=== PATIENT | female | born 1990 | race Caucasian/White ===

== ENCOUNTER 2020-03-01 13:30 | Inpatient (IN) ==
[2020-03-01] MEDS ORDERED: OXYTOCIN 30 UNITS/500 ML BAG IV PRN (13:49)
--- NOTE | 2020-03-01 13:55 | History & Physical Report ---
Date of Service March 01, 2020 Assessment & Plan (1) with 41 completed weeks gestation: (2) Normal labor: admit. fetus category one. Desires epidural. expectant management. Anticipate . History of Present Illness Chief Complaint: contractions. Primary Care Provider: Eboni Salazar MD Patient is a 29yowf with iup at 41 2/7 weeks who presents to labor and delivery c/o contractions. Patient was on for induction today and had a reyes bulb last night which fell out prior to leaving. She notes today onset of increasingly painful contractions. Notes bloody mucous d/c. no lof. +fm. labs--O+/ab-/ri/rprnr/hepb-/hiv-/gc/ct-/16 week gtt abnl/2 hr gtt x 2 nl/gbs neg. Allergies Allergy/AdvReac Type Severity Reaction Status Date / Time doxycycline Allergy Vomiting Verified 02/29/20 19:23 Home Medications Home Medications Medication Instructions Recorded Confirmed Type prenat.vits,meg,tax-bmej-ucahd 1 tab PO DAILY 07/07/19 02/29/20 History lactobacillus combination no.4 3 3,000 mmu cells PO DAILY 09/07/19 02/29/20 History billion cell capsule Patient History Social History Preferred Language: [place] Beliefs That Will Affect Care: None marital status: Current Living Situation: Spouse Current Living Situation Comment: no pets current occupational status: employed current occupation: patient support Feels Safe at Home: Yes Smoking Status: Never smoker Hx Alcohol Use: No Hx Substance Use: No OB History g1--present EMERGENCY DEPARTMENT RN History hx of +HPV in the past Review of Systems All systems reviewed & are unremarkable except as noted in HPI & below Physical Exam Constitutional: WD/WN, vitals as above Gastrointestinal (Abdomen): soft, gravid, nt Psychiatric: A+Ox3, euthymic affect Genitourinary: cx--8/100/-1 toco--q2-3min efm--120s with mod variability, accels to 150s, no decels Results & Data Vital Signs (Past 12 Hours) Vital Signs Pulse BP 03/01/20 13:41 56 L 128/81 Code Status & VTE Plan VTE Prophylaxis Plan VTE Prophylaxis will be ordered: No Coding Level of Care Code None Diagnoses with 41 completed weeks gestation Z3A.41 Normal labor O80; Z37.9
[2020-03-01] MEDS: LACTATED RINGER'S 1,000 ML IV PRN ×2 (13:57→14:52)
[2020-03-01 14:20] LABS: Hematocrit (blood only) 40.8 % (37-47); Hemoglobin 14.2 g/dL (12.0-16.0); Mean Corpuscular Hemoglobin 31.6 pg (25-34); Mean Corpuscular Volume 90.9 fL (80-100); Mean Platelet Volume 11.1 fL (7.4-10.4); Platelet Count 249 K/uL (130-400); RDW Coefficient of Variation 13.2 % (11.5-14.5); RDW Standard Deviation 43.7 fL (36.4-46.3); Red Blood Count 4.49 M/uL (4.2-5.4); White Blood Count 13.09 K/uL (4.8-10.8)
[2020-03-01 14:28] LABS: Mean Corpuscular Hgb Conc 34.8 g/dL (32-36)
--- NOTE | 2020-03-01 14:31 | Anesthesiology Consultation ---
Date of Service March 01, 2020 Assessment & Plan Chart Review Chart Review: Acceptable Risk for Surgery, Patient NOT seen in Pre Admission Testing and Acceptable Risk for Labor Epidural Consults Requested none ASA ASA2 Proposed Anesthesia Anesthesia Type: General, Labor Epidural and CSE Risk / Benefits Reviewed With: PT / POA / Parent / Guardian, Accepts Plan and Informed Consent Obtained History Height/Weight Height: 5 ft 4 in Weight: 75.296 kg Allergies Allergy/AdvReac Type Severity Reaction Status Date / Time doxycycline Allergy Vomiting Verified 02/29/20 19:23 Medications Home Medications Medication Instructions Recorded Confirmed Last Taken prenat.vits,meg,fci-rawi-ahotw 1 tab PO DAILY 07/07/19 03/01/20 02/29/20 Active Medications Generic Name Dose Route Start Last Admin Trade Name Freq PRN Reason Stop Dose Admin Lactated Ringer's 1,000 mls @ 125 mls/hr 03/01/20 13:49 03/01/20 13:57 Lr IV 03/03/20 13:48 999 mls/hr .Q8H PRN Administration L&D Protocol Protocol NPO Date Last Intake of Fluids: 03/01/20 Time Last Intake of Fluids: 11:00 Date Last Intake of Solids: 03/01/20 Time Last Intake of Solids: 09:00 Past Medical History Medical History Abnormal biochemical finding on screening of mother Anemia Anxiety History of chicken pox Lyme disease (Resolved) UTI (urinary tract infection) Exercise / Class Metabolic Activity II 4-5 Yardwork/Stairs/Walk up hill Past Family History Family History Grandfather (Maternal) Diabetes Grandfather (Paternal) No problems noted. Grandmother (Paternal) Heart disease Father Hypertension Mother Thyroid disease Aunt Breast cancer Past Surgical History Surgical History S/P wisdom tooth extraction Past Anesthesia History No Hx of Anesthesia Complications and No Family Hx of Anesthesia Complications History of PONV No Hx of PONV and No Hx of Motion Sickness Social History Smoking Status: Never smoker Hx Alcohol Use: No Hx Substance Use: No substance use type: does not use Physical Exam Vital Signs Last Vital Signs Temp 36.5 C 04/03/20 13:59 Pulse 58 L 03/01/20 14:27 Resp 20 03/01/20 13:59 BP 128/81 03/01/20 13:41 Pulse Ox 100 03/01/20 14:27 Constitutional not obese ENMT Mouth: + small oral opening; no dentition abnormality Thyromental Distance: < 3.5 Finger Breadths Mallampati Class: II Neck normal visual inspection and trachea midline; neck extension not limited Respiratory normal respiratory effort Auscultation: lungs clear to auscultation bilaterally Cardiovascular Rate/Rhythm: regular rate and regular rhythm Heart Sounds: no murmur Vessels: no carotid bruit Musculoskeletal Spine: lumbar spine normal to inspection; normal cervical ROM Neurologic moves all extremities Motor/Sensory: no sensory deficit Psychiatric Orientation: alert and oriented x 3 Testing Laboratory Results 03/01/20 14:00
[2020-03-01] MEDS ORDERED: ePHEDrine sulfate 50 MG/ML AMP ONE (14:36)
[2020-03-01] MEDS ORDERED: fentaNYL 2MCG/ML ROPIV 1.25MG/ML 100 ML BAG EPI ONE (14:37)
[2020-03-01] MEDS ORDERED: BUPIVACAINE 0.25% 30 ML VIAL ONE (14:37)
[2020-03-01] MEDS ORDERED: fentaNYL citrate 100 MCG/2 ML VIAL ONE (14:37)
[2020-03-01] MEDS ORDERED: NALOXONE HCL 1 MG in SODIUM CHLORIDE 0.9% 1000ML 1,000 ML IV PRN ×2 (14:49→15:55)
[2020-03-01] MEDS ORDERED: ePHEDrine sulfate 50 MG/ML AMP IV PRN ×2 (14:49→15:55)
[2020-03-01] MEDS ORDERED: PROMETHAZINE HCL 25 MG in SODIUM CHLORIDE 0.9% 50 ML IV PRN ×2 (14:49→15:55)
[2020-03-01] MEDS ORDERED: ONDANSETRON INJ 2 MG/ML 2 ML VIAL IV PRN ×3 (14:49→18:44)
[2020-03-01] MEDS ORDERED: DiphenhydrAMINE HCL 50 MG/ML VIAL IV PRN ×2 (14:49→15:55)
[2020-03-01] MEDS ORDERED: NALBUPHINE HCL INJ 10 MG/ML AMP IV PRN ×2 (14:49→15:55)
[2020-03-01] MEDS ORDERED: fentaNYL 2MCG/ML ROPIV 1.25MG/ML 100 ML BAG EPI PRN (14:49)
[2020-03-01] MEDS ORDERED: NALOXONE HCL 0.4 MG/1 ML VIAL/CARP IV PRN ×2 (14:49→15:55)
[2020-03-01] MEDS ORDERED: TERBUTALINE SULFATE 1 MG/ML VIAL ONE (15:30)
[2020-03-01] MEDS ORDERED: MoRPHine SULFATE PF 1 MG/ML 10 ML AMP/VIAL ONE (15:47)
[2020-03-01] MEDS ORDERED: LACTATED RINGER'S 500 ML IV PRN (15:55)
[2020-03-01] MEDS ORDERED: MoRPHine SULFATE 2 MG/ML CARP IV PRN (15:55)
[2020-03-01] MEDS ORDERED: MoRPHine SULFATE PF 1 MG/ML 10 ML AMP/VIAL INT SPINAL ONE (15:55)
[2020-03-01] MEDS ORDERED: KETOROLAC 30 MG/ML VIAL IV PRN (15:55)
[2020-03-01] MEDS ORDERED: NALOXONE HCL 0.08 MG in SYRINGE 1.8 ML IV PRN (15:55)
[2020-03-01] MEDS ORDERED: HYDROmorphone INJ 0.5 MG/0.5 ML SYR IV PRN (15:55)
[2020-03-01] MEDS ORDERED: OXYTOCIN 10 UNITS/ML VIAL ONE (15:57)
[2020-03-01] MEDS ORDERED: PHENYLEPHRINE 100MCG/ML 5ML SYR ONE (15:57)
[2020-03-01] MEDS ORDERED: ONDANSETRON INJ 2 MG/ML 2 ML VIAL ONE (15:57)
[2020-03-01] MEDS ORDERED: CARBOPROST TROMETHAMINE 250 MCG/ML AMPUL ONE (15:57)
[2020-03-01] MEDS ORDERED: LIDOCAINE/EPINEPHRINE 2% 1:200,000 20 ML SDV ONE (15:57)
[2020-03-01] MEDS ORDERED: DC INTRASPINAL MORPHINE SCH (16:00)
[2020-03-01] MEDS ORDERED: NO NARCOTICS OR SEDATIVES SCH (16:00)
[2020-03-01] MEDS ORDERED: SODIUM CHLORIDE 0.9% 1000ML 1,000 ML IV SCH (16:00)
--- NOTE | 2020-03-01 16:32 | Anesthesia Procedure Note ---
Date of Service March 01, 2020 Anesthesia Post Epidural Note Vital Signs Vital Signs: Temp Pulse Resp BP Pulse Ox 36.5 C 109 H 24 140/79 88 L 03/01/20 13:59 03/01/20 16:31 03/01/20 15:00 03/01/20 16:25 03/01/20 16:31 Notes Mental Status: alert / awake / arousable Patient Amnestic to Procedure: No Nausea / Vomiting: adequately controlled Pain: adequately controlled Airway Patency, RR, SpO2: stable & adequate BP & HR: stable & adequate Hydration State: stable & adequate Neuraxial Anesthesia: was administered and sensory block is resolving Anesthetic Complications: no major complications apparent and Pt Satisfied with anesthetic care Epidural: Removed without complications and With tip intact
--- NOTE | 2020-03-01 16:32 | Anesthesiology Progress Note ---
Date of Service March 01, 2020 Anesthesia Post Procedure Vital Signs Vital Signs: Temp Pulse Resp BP Pulse Ox 03/01/20 16:31 109 H 88 L 03/01/20 16:26 110 H 100 03/01/20 16:25 114 H 140/79 03/01/20 16:21 121 H 83 L 03/01/20 16:17 121 H 115/76 03/01/20 16:16 121 H 98 03/01/20 15:18 55 L 130/70 03/01/20 15:16 56 L 123/73 03/01/20 15:14 55 L 112/58 L 91 03/01/20 15:12 55 L 104/56 L 03/01/20 15:11 56 L 92 03/01/20 15:10 57 L 109/65 03/01/20 15:09 97 H 82 L 03/01/20 15:08 53 L 105/57 L 03/01/20 15:06 60 107/57 L 85 L 03/01/20 15:04 74 115/56 L 03/01/20 15:03 58 L 100 03/01/20 15:02 52 L 106/58 L 03/01/20 15:00 54 L 24 106/56 L 03/01/20 14:58 53 L 108/59 L 100 03/01/20 14:55 53 L 93/52 L 03/01/20 14:53 56 L 100 03/01/20 14:52 55 L 100/54 L 03/01/20 14:50 51 L 102/54 L 03/01/20 14:49 49 L 106/53 L 03/01/20 14:48 49 L 100 03/01/20 14:47 53 L 123/55 L 03/01/20 14:44 51 L 132/72 03/01/20 14:43 49 L 144/70 H 100 03/01/20 14:38 64 98 03/01/20 14:33 65 100 03/01/20 14:30 20 03/01/20 14:27 58 L 100 03/01/20 14:22 47 L 100 03/01/20 14:17 53 L 100 03/01/20 13:59 36.5 C 20 03/01/20 13:41 56 L 128/81 Transfer of Care Handoff Completed per policy Notes Mental Status: alert / awake / arousable Patient Amnestic to Procedure: No Nausea / Vomiting: adequately controlled Pain: adequately controlled Airway Patency, RR, SpO2: stable & adequate BP & HR: stable & adequate Hydration State: stable & adequate Neuraxial Anesthesia: was administered and sensory block is resolving Anesthetic Complications: no major complications apparent and Pt Satisfied with anesthetic care
[2020-03-01] MEDS ORDERED: CARBOPROST TROMETHAMINE 250 MCG/ML AMPUL IM ONE (16:45)
--- NOTE | 2020-03-01 16:55 | Operative Report (OR) ---
DATE OF OPERATION: 03/01/2020 PREOPERATIVE DIAGNOSES: 1. Intrauterine at 41 and 2/7 weeks. 2. Active labor. 3. Non-reassuring heart testing. POSTOPERATIVE DIAGNOSES: Same. PROCEDURE: Emergent primary lower transverse section. SURGEON: Josselyn Avendaño M.D. DATA ENTRY PROCESSOR: Bella Soto RN. ANESTHESIA: Epidural. ESTIMATED BLOOD LOSS: 600 mL. FLUIDS: 1000 mL. URINE OUTPUT: Minimal amount of pink tinged urine draining from the bladder at the end of the procedure. INDICATIONS: Ilene is a 1, para 0 who presented to labor and delivery in active labor. She had a planned induction for today and had a Campa catheter placed last night, but that fell out prior to leaving and she went home. She called complaining of labor and was brought in and was found to be 8 cm dilated and in active labor. Fetus was category 1 at that time with accelerations. The patient underwent an epidural anesthetic and then unfortunately had a prolonged deceleration after her epidural was given. After her epidural, she was placed into a supine position with a leftward tilt and found to be having decelerations into the 60s. Resuscitation was begun including rolling the patient, giving oxygen, fluids and subQ terbutaline. She was certainly in what appeared to be a spontaneous tachysystole pattern. This started at about 14:51. With stimulation of the fetus and placement of an FSE, we did get the baby back to the 120s for a brief period of time, but then the baby started having more prolonged and persistent decelerations, persisting with contractions and so the decision was made to proceed with emergent delivery secondary to inability to resuscitate the baby. At the time she underwent rupture of membranes for clear fluid and there was still a rim of cervix and station was 0 to +1. I did not feel I could safely get a vacuum on this baby. FINDINGS: Viable male , Apgars 8 and 9, weight pending. Uterus, tubes, and ovaries were noted to be normal bilaterally. There was no occult cord that I could appreciate. COMPLICATIONS: None. DRAINS: Campa. DISPOSITION: To recovery room in stable condition. DESCRIPTION OF THE PROCEDURE: The patient was taken to the operating room urgently. She was transferred to the operating bed with a leftward tilt. A Campa catheter has already been placed. She was restrained safely on the bed and iodine splash was placed on the belly. The patient was prepped and draped. A time-out was noted identifying correct patient and procedure. A Pfannenstiel skin incision was made with a knife, taken down to the underlying layer of fascia with the knife. The fascia was incised in the midline with the knife. The steelscope operator's fingers were then placed in the fascial incision and the fascia was opened cephalad and caudad. The muscles were bluntly in the midline and the peritoneum was entered bluntly. The incision was stretched, the bladder blade was placed. The vesicouterine peritoneum was found to be low. Hysterotomy incision was made above the bladder with the knife. The steelscope operator's fingers were placed into this and it was opened cephalad and caudad. The steelscope operator's hand was placed into the uterus. The baby was wedged into the pelvis and low, so an account assistant pushed vaginally and pushed the baby back up into the uterus and I was able to then deliver the 's head atraumatically. There was no nuchal cord. The rest of the baby was then delivered without difficulty. The cord was clamped and cut. The was handed off to waiting band ripsaw operator for drying and attention. Cord blood and gases were obtained. Placenta was manually extracted. The uterus was cleared of all clot and debris with moistened laparotomy sponges. Hysterotomy incision was repaired in 2 layers, the first in a running locked layer, the second in an imbricating layer of 0 Vicryl. Hemostasis was obtained with dilute Pitocin and intramuscular application of Hemabate into the uterus. A shvxed-se-vukrc suture was needed in the midline for hemostasis. The posterior cul-de-sac was irrigated and cleared of all clot and debris. The hysterotomy incision was again inspected and found to be hemostatic. The uterus was reinteriorized. Hysterotomy incision was again inspected and found to be hemostatic. Gutters were cleared of all clot and debris. The muscles were reapproximated with interrupted stitches of 0 Vicryl meeting in the midline. The fascia was reapproximated with 0 Vicryl starting at the corners and meeting in the midline and the incision was then closed with 4-0 Vicryl in subcuticular fashion. Sponge and needle counts were correct. We were unable to do an instrument count prior to the procedure and thus an x-ray was performed. On my preliminary reading there were no instruments left within the operative field. The patient was then transferred to the recovery room in stable condition. I attest to the content of the Intraoperative Record and any orders documented therein. Any exceptions are noted below. ABRIL
--- NOTE | 2020-03-01 17:32 | XRay Report ---
KUB HISTORY: no surgical count COMPARISON: None. FINDINGS: An epidural catheter is noted at the L3 level. No additional radiopaque foreign bodies iden tified within the abdomen or pelvis. Small foci of gas within the deep pelvis likely due to postopera tive change. No renal calculi. No ureteral calculi. IMPRESSION: 1. An epidural catheter noted at the L3 level. No additional radiopaque foreign bodies identified. 2. Small amount of gas within the deep pelvis likely represents postoperative change. ACT 112: Negative or not required by law. Electronically signed by: Raman Hollis M.D. 03/01/2020 5:31 PM
[2020-03-01 17:53] LABS: Base Excess Cord Venous Blood -7.4 mEq/L (-7.7-1.9); Cord Venous Blood HCO3 18 mmol/L (18.4-26.8); Cord Venous Blood PCO2 38 mmHg (30.4-57.2); Cord Venous Blood PO2 15 mmHg (14.1-43.3); O2 Saturation Cord Venous Bld < 60.0 % (<68)
[2020-03-01 17:55] LABS: Base Excess Cord Arterial Bld -7.6 mEq/L (-9-1.8); CO2 Cord Arterial Blood 42 mmHg (39.1-73.5); HCO3 Cord Arterial Blood 19 mmol/L (19.7-28.5); Oxygen Sat Cord Arterial Blood < 70.0 % (<60); PO2 Cord Arterial Blood 12 mmHg (4.1-31.7); pH Cord Arterial Blood 7.27 (7.1-7.38)
[2020-03-01] MEDS ORDERED: BENZOCAINE 20% AER SPR 82.5 GM CAN EXT PRN (18:44)
[2020-03-01] MEDS ORDERED: DIPHTHERIA/TETANUS/PERTUSSIS 0.5 ML SYR/VIAL IM ONE (18:44)
[2020-03-01] MEDS ORDERED: HYDROCORTISONE ACETATE 25 MG SUPP PR PRN (18:44)
[2020-03-01] MEDS ORDERED: MAGNESIUM HYDROXIDE SUSP 30 ML UDC PO PRN (18:44)
[2020-03-01] MEDS ORDERED: SUPERCREAM 0.870% 15 GM JAR EXT PRN (18:44)
[2020-03-01] MEDS ORDERED: SENNA 8.6 MG TAB PO PRN (18:44)
[2020-03-01] MEDS ORDERED: LACTATED RINGER'S 1,000 ML IV SCH (19:20)
[2020-03-01] MEDS: SIMETHICONE 80 MG CHEW PO SCH ×2 (20:03→21:19)
[2020-03-01] MEDS ORDERED: TERBUTALINE SULFATE 1 MG/ML VIAL SQ ONE (20:06)
[2020-03-01] MEDS: OXYTOCIN 20 UNITS in LACTATED RINGER'S 1,000 ML IV SCH (20:32)
[2020-03-01] MEDS: DOCUSATE SODIUM 100 MG CAP PO SCH (21:19)
[2020-03-02] MEDS: OXYTOCIN 20 UNITS in LACTATED RINGER'S 1,000 ML IV SCH (05:00)
[2020-03-02 07:06] LABS: Basophils # (auto) 0.01 K/uL (0-0.2); Basophils % (auto) 0.1 %; Hemoglobin 10.6 g/dL (12.0-16.0); Immature Granulocytes # (auto) 0.02 K/uL (0.00-0.02); Immature Granulocytes % (auto) 0.2 %; Lymphocytes # (auto) 1.83 K/uL (1.2-3.4); Lymphocytes % (auto) 14.7 %; Mean Corpuscular Hemoglobin 30.2 pg (25-34); Mean Corpuscular Hgb Conc 33.1 g/dL (32-36); Mean Corpuscular Volume 91.2 fL (80-100); Mean Platelet Volume 10.6 fL (7.4-10.4); Monocytes # (auto) 1.05 K/uL (0.11-0.59); Monocytes % (auto) 8.4 %; Neutrophils # (auto) 9.52 K/uL (1.4-6.5); Neutrophils % (auto) 76.6 %; Platelet Count 188 K/uL (130-400); RDW Coefficient of Variation 13.4 % (11.5-14.5); RDW Standard Deviation 44.1 fL (36.4-46.3); Red Blood Count 3.51 M/uL (4.2-5.4); White Blood Count 12.43 K/uL (4.8-10.8)
[2020-03-02] MEDS ORDERED: DiphenhydrAMINE HCL 50 MG/ML VIAL IV PRN (09:55)
[2020-03-02] MEDS ORDERED: MEPERIDINE HCL 50 MG/ML CARP IV PRN (09:55)
[2020-03-02] MEDS ORDERED: OXYCODONE/ACETAMINOPHEN 5mg/325mg TAB PO PRN (09:55)
[2020-03-02] MEDS ORDERED: KETOROLAC 30 MG/ML VIAL IV PRN (09:55)
[2020-03-02] MEDS ORDERED: PROMETHAZINE HCL 25 MG in SODIUM CHLORIDE 0.9% 50 ML IV PRN (09:55)
[2020-03-02] MEDS: SIMETHICONE 80 MG CHEW PO SCH ×3 (10:01→20:31)
[2020-03-02] MEDS: FERROUS SULFATE 325 MG TAB PO SCH (10:01)
[2020-03-02] MEDS: DOCUSATE SODIUM 100 MG CAP PO SCH ×2 (10:01→20:31)
[2020-03-02] MEDS: PRENATAL VITAMIN 1 TAB PO SCH (10:01)
[2020-03-02] MEDS: IBUPROFEN 600 MG TAB PO PRN ×3 (10:48→23:22)
--- NOTE | 2020-03-02 11:31 | Obstetrical Progress Note ---
Date of Service March 02, 2020 Assessment & Plan (1) S/P section: Doing well. Plan routine care. Reyes out--void, encourage ambulation, adat, po pain meds. Day #:: 1 Subjective Ambulation: limited ambulation Voiding: reyes catheter in place Passing Gas:: No Diet Tolerance:: clear liquids Lochia:: Small Feeding Type:: breast feeding Physical Exam Constitutional WD/WN, vitals as above Gastrointestinal (Abdomen) soft, appropriately tender, nd ff/appr tender at u Psychiatric A+Ox3, euthymic affect Results & Data Vital Signs (Past 12 Hours) Vital Signs Temp Pulse Resp BP Pulse Ox 03/02/20 06:15 18 97 03/02/20 05:35 18 97 03/02/20 04:30 18 94 03/02/20 03:30 18 96 03/02/20 03:10 36.9 C 69 18 118/66 96 03/02/20 02:20 16 96 03/02/20 01:05 18 96 03/02/20 00:00 36.7 C 62 18 115/66 97
[2020-03-02] MEDS ORDERED: ACETAMINOPHEN 325 MG TAB PO PRN (15:00)
[2020-03-02] MEDS ORDERED: bisacodyL 5 MG TABEC PO SCH (20:00)
[2020-03-03] MEDS: IBUPROFEN 600 MG TAB PO PRN ×3 (03:43→18:02)
[2020-03-03 06:03] LABS: Hematocrit (blood only) 30.2 % (37-47); Hemoglobin 10.1 g/dL (12.0-16.0)
[2020-03-03] MEDS: DOCUSATE SODIUM 100 MG CAP PO SCH ×2 (08:43→20:25)
[2020-03-03] MEDS: PRENATAL VITAMIN 1 TAB PO SCH (08:43)
[2020-03-03] MEDS: SIMETHICONE 80 MG CHEW PO SCH ×4 (08:43→20:25)
[2020-03-03] MEDS: FERROUS SULFATE 325 MG TAB PO SCH (08:43)
--- NOTE | 2020-03-03 11:09 | Obstetrical Progress Note ---
Date of Service March 03, 2020 Assessment & Plan (1) S/P section: doing well postop. stable. routine care. Day #:: 2 Subjective Ambulation: ambulating normally Voiding: no voiding problems Passing Gas:: Yes Diet Tolerance:: regular diet Lochia:: Small Feeding Type:: breast feeding no using narcotic pain meds and doing ok. working on breast feeding. denies ?s for me. Physical Exam Constitutional WD/WN, vitals as above Respiratory normal respiratory effort, lungs clear to auscultation Cardiovascular Rate/Rhythm: regular rate and regular rhythm Gastrointestinal (Abdomen) Inspection/Auscultation: + abdominal surgical incision (c/d/i with steris) Percussion/Palpation: abdomen soft; abdomen nontender (ff 2 down) Musculoskeletal nt calves. Neurologic grossly normal Psychiatric A+Ox3, euthymic affect Results & Data Vital Signs (Past 12 Hours) Vital Signs Temp Pulse Resp BP Pulse Ox 03/03/20 07:30 98.8 F 54 L 20 127/78 03/02/20 23:25 98.2 F 66 18 141/90 H 99
[2020-03-03] MEDS ORDERED: bisacodyL 10 MG SUPP PR PRN (16:34)
[2020-03-04] MEDS: IBUPROFEN 600 MG TAB PO PRN ×3 (00:01→11:43)
--- NOTE | 2020-03-04 07:06 | Obstetrical Progress Note ---
Date of Service March 04, 2020 Assessment & Plan (1) S/P section: stable, will d/c home. aware should wear scds while here in hospital and risks for dvt/pe. instructions are reviewed. f/u 6 wk pp check. bps ok. Subjective Ambulation: ambulating normally Voiding: no voiding problems Passing Gas:: Yes Diet Tolerance:: regular diet Lochia:: Small Feeding Type:: breast feeding doing well today, feeding well. feels like milk is coming in. Physical Exam Constitutional WD/WN, vitals as above Respiratory normal respiratory effort, lungs clear to auscultation Cardiovascular Rate/Rhythm: regular rate and regular rhythm Gastrointestinal (Abdomen) Inspection/Auscultation: normal bowel sounds and + abdominal surgical incision (c/d/i with steris, may have bruising on mons) Percussion/Palpation: abdomen soft; abdomen nontender (fundus one above but pt hasn't voided yet, feeding baby) Musculoskeletal nt calves no edema, not wearing her scds, said she opted to not wear yesterday on her own, not based on our recs Neurologic grossly normal Psychiatric A+Ox3, euthymic affect Results & Data Vital Signs (Past 12 Hours) Vital Signs Temp Pulse Resp BP Pulse Ox 03/04/20 00:00 98.1 F 64 16 139/82 97 03/03/20 19:35 98.6 F 69 16 143/82 H 96
[2020-03-04] MEDS: FERROUS SULFATE 325 MG TAB PO SCH (11:44)
[2020-03-04] MEDS: SIMETHICONE 80 MG CHEW PO SCH (11:44)
[2020-03-04] MEDS: PRENATAL VITAMIN 1 TAB PO SCH (11:44)
[2020-03-04] MEDS: DOCUSATE SODIUM 100 MG CAP PO SCH (11:44)
--- NOTE | 2020-03-05 08:52 | Discharge Summary (DS) ---
ADMIT DIAGNOSES: 1. Intrauterine at 41 and 2/7 weeks. 2. Normal labor. DISCHARGE DIAGNOSES: 1. Intrauterine at 41 and 2/7 weeks. 2. Normal labor. 3. Nonreassuring heart tones. PROCEDURE: Emergent primary low transverse section. HISTORY OF PRESENT ILLNESS: The patient is a 29-year-old white female 1, para 0 with an intrauterine at 41 and 2/7 weeks, who presents to labor and delivery complaining of contractions. She was on for induction for the day of admission and had a Campa bulb placed last night, which fell out prior to leaving the hospital. She notes today onset of increasing painful contractions, bloody mucus discharge. No leakage of fluid and good movement. For the rest of the patient's detailed history and physical, please see her history and physical. ASSESSMENT: This is an intrauterine at 41 weeks, in active labor, presenting at 8 cm dilated. HOSPITAL COURSE: The patient was admitted and underwent an epidural anesthetic and then shortly after that, the baby had a deceleration into the 60s-70s. Resuscitative efforts were initiated including rolling the patient, giving oxygen, fluids and subQ terbutaline. Her contraction pattern appeared to be spontaneous tachysystole, but we could not get it out, we could not get the contractions to space. An FSE was placed and with stimulation and some resuscitation, the baby did get back to the 120s for a brief period of time, but then continued to have more prolonged persistent decelerations. She was found to be 9 cm at that time with station 0 to +1 and I did not feel we could safely get a vacuum on this baby, so we proceeded to an urgent primary low transverse section. Thankfully, her epidural was dosed and worked well. She delivered a viable male infant with Apgars of 8 and 9. Normal uterus, tubes, and ovaries were noted bilaterally. There was no occult cord that I could appreciate. The patient's postoperative course was uncomplicated. She tolerated a regular diet, ambulated without difficulty after the removal of her Campa catheter, had her pain well controlled with oral pain medications and her discharge H and H were 10.1 and 30.2. She will return in 6 weeks for routine postop and care.
== END 2020-03-04 12:55 | disposition home or self-care (01) | DRG 788 ==
LOC: OPB 13:30 → 4S1 13:31 → 4S2 20:52